=== PATIENT | female | born 1990 | race Caucasian/White ===

== ENCOUNTER 2018-08-03 12:18 | Emergency (ER) | payer SELFPAY ==
[2018-08-03 12:31] VITALS: BP 119/59
[2018-08-03] MEDS ORDERED: DIPH/PERTUSS(ACELL)/TETANUS VAC/PF 0.5 ML SYR (>=10YO) IM ONE (12:31)
[2018-08-03] MEDS ORDERED: ACETAMINOPHEN 325 MG TABLET PO ONE (12:31)
[2018-08-03] MEDS ORDERED: LIDOCAINE 1%/EPINEPHRINE INJ 20 ML VIAL INJ ONE (12:31)
--- NOTE | 2018-08-03 12:33 | ER Document Report ---
HPI - HPI Patient complains to provider of: hand laceration Time Seen by Provider: 08/03/18 12:26 Onset: Just prior to arrival Onset/Duration: Sudden Quality of pain: Achy Pain Level: 5 Context: Patient was attempting to cut a potato and slipped cutting her right hand. Patient is right-hand dominant. Associated Symptoms: Other - r hand Exacerbated by: Movement Relieved by: Remaining still Similar symptoms previously: No Recently seen / treated by doctor: No - ROS ROS below otherwise negative: Yes Systems Reviewed and Negative: Yes All other systems reviewed and negative - CONSTITUTIONAL Constitutional: DENIES: Fever - GASTROINTESTINAL Gastrointestinal: DENIES: Nausea - REPRODUCTIVE Reproductive: DENIES: : - MUSCULOSKELETAL Musculoskeletal: REPORTS: Extremity pain - DERM Skin Color: Normal Skin Problems: Laceration Past Medical History - General Information source: Patient - Social History Smoking Status: Never Smoker Frequency of alcohol use: None Drug Abuse: None 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 IN LAST 30 DAYS: No - HEENT HEENT: Atraumatic, Normocephalic - NECK Neck: Normal Inspection - RESPIRATORY Respiratory: Breath Sounds Normal, No Respiratory Distress - CARDIOVASCULAR Cardiovascular: Regular Rate, Regular Rhythm Pulses: Normal: Radial - BACK Back: Normal Inspection - MUSCULOSKELETAL/EXTREMETIES Musculoskeletal/Extremeties: MAEW, FROM - NEURO Level of Consciousness: Awake, Alert, Appropriate Motor/Sensory: No Motor Deficit, No Sensory Deficit - DERM Integumentary: Warm, Dry, Laceration - 4 cm laceration to the palmar surface of right hand over thenar eminence. Patient with normal sensation and movement to right hand. No vascular compromise. Procedures - Laceration/Wound Repair Right Hand Wound length (cm): 4 Wound's Depth, Shape: Linear Anesthetic type: 1% Lidocaine w/epi Wound explored: Clean, No foreign body removed Wound Repaired With: Sutures Suture Size/Type: 5:0, Nylon Number of Sutures: 9 Layer Closure?: No Post-procedure wound care: Sterile dressing applied Post-procedure NV exam normal: Yes Complications: No Hands front picture: 1 - lac Discharge - Discharge Clinical Impression: Laceration of right hand Qualifiers: Encounter type: initial encounter Foreign body presence: without foreign body Qualified Code(s): S61.411A - Laceration without foreign body of right hand, initial encounter Condition: Stable Disposition: HOME, SELF-CARE Instructions: Acetaminophen, Hand Laceration ([facility]), Laceration Care ([facility]), Tetanus Immunization Given ([facility]) Additional Instructions: Return immediately for any new or worsening symptoms Followup with your primary care provider, call tomorrow to make a followup appointment Suture removal in 12 days Follow-up with hand surgeon for any persistent problems Forms: Return to Work Referrals: CONNIE FORBES MD [EMERITUS] - Follow up as needed MIREYA MARTINEZ DO [ACTIVE STAFF] - Follow up as needed
== END 2018-08-03 13:33 | disposition home or self-care (01) ==
LOC: ER 12:18
DX: S61.411A Laceration without foreign body of right hand, initial encounter (principal); W26.0XXA Contact with knife, initial encounter; Y93.G1 Activity, food preparation and clean up; Z23 Encounter for immunization
CPT/HCPCS: 99282; 90471; 90715; 12002; J3490